=== PATIENT | female | born 1990 | race African-American/Black ===

== ENCOUNTER 2017-07-17 17:46 | Emergency (ER) | payer MEDICAID ==
[~2017-07-17] VITALS: Ht 154.9 cm; Wt 135.0 kg
[2017-07-17 18:03] VITALS: BP 123/86
== END 2017-07-17 21:22 | disposition left against medical advice (07) ==
LOC: ER 17:46
DX: R10.2 Pelvic and perineal pain (principal); Z53.21 Procedure and treatment not carried out due to patient leaving prior to being seen by health care provider